=== PATIENT | female | born 1980 | race Two or more races ===

== ENCOUNTER 2017-12-05 07:51 | Emergency (ER) | payer OTHER ==
[~2017-12-05] VITALS: Ht 152.4 cm; Wt 62.1 kg
[~2017-12-05 07:51] MED LIST: LEVOXYL88 MCG; ZANTAC300 MG
[2017-12-05] MEDS ORDERED: PRILOSEC OTC20 MG (08:03)
== END 2017-12-05 12:08 ==
LOC: ER 07:51
DX: O20.0 Threatened abortion (principal); Z34.81 Encounter for supervision of other normal pregnancy, first trimester

== ENCOUNTER → 2017-12-23 | Day surgery (SDC) | payer OTHER ==
[~2017-12-23] MED LIST changes: +PRILOSEC OTC20 MG
== END | disposition home or self-care (01) ==
LOC: CIR.AMB 09:31
DX: O02.1 Missed abortion (principal); Z3A.01 Less than 8 weeks gestation of pregnancy